=== PATIENT | male | born 1950 | race Caucasian/White ===

== ENCOUNTER 2017-05-05 05:53 | Inpatient (IN) | payer MEDICARE, OTHER ==
[2017-04-28 11:23] LABS: BASOPHILS 0.5 %; BASOPHILS ABSOLUTE 0.04 10/3/uL (0.0-0.16); EOSINOPHILS 4.9 %; HEMATOCRIT 45.8 % (40.0-51.0); HEMOGLOBIN 15.8 g/dL (13.6-17.8); IMMATURE GRANULOCYTES 0.4 %; IMMATURE GRANULOCYTES ABSOLUTE 0.03 10/3/uL (0.0-0.11); LYMPHOCYTES 29.6 %; LYMPHOCYTES ABSOLUTE 2.41 10/3/uL (0.67-4.30); MANUAL DIFF NO %; MEAN CORPUS HGB CONC 34.5 g/dL (32.0-36.0); MEAN CORPUSCULAR HEMOGLOB 30.7 pg (26.0-34.0); MEAN CORPUSCULAR VOLUME 89.1 fL (80-100); MEAN PLATELET VOLUME 8.8 fL (9.2-13.0); MONOCYTES 6.6 %; MONOCYTES ABSOLUTE 0.54 10/3/uL (0.21-1.20); NEUTROPHILS ABSOLUTE 4.72 10/3/uL (2.02-8.40); PLATELET COUNT 200 10/3/uL (150-400); RBC DISTRIBUTION WIDTH 13.3 % (12.0-16.0); RED CELL COUNT 5.14 10/6/uL (4.7-6.1); WHITE BLOOD CELLS 8.1 10/3/uL (4.5-10.5)
[2017-04-28 11:29] LABS: PARTIAL THROMBO TIME 32.6 SEC (22.5-37.2); PROTIME (NOT ORD) 13.2 SEC (12.0-14.5)
[2017-04-28 11:41] LABS: BUN (BLOOD UREA NITROGEN) 15 MG/DL (6-23); CALCIUM, SERUM 9.4 MG/DL (8.5-10.4); CHLORIDE, SERUM 104 MMOL/L (96-112); CO2 (CARBON DIOXIDE) 29 MMOL/L (24-34); CREATININE 1.17 MG/DL (0.70-1.30); GFR AFRICAN AMERICAN 74 ML/MIN (>=60); GFR NON AFRICAN AMERICAN 64 ML/MIN (>=60); GLUCOSE, SERUM 100 MG/DL (60-99); POTASSIUM, SERUM 4.4 MMOL/L (3.5-5.3); SODIUM, SERUM 138 MMOL/L (135-148)
[2017-04-28 14:13] LABS: ASCORBIC ACID (UR NOT ORDER) NEG (NEG); BILIRUBIN, URINE NEGATIVE (NEG); KETONE, URINE NEGATIVE (NEG); LEUKOCYTE ESTERASE(NOT OR NEG (NEG); WBC (NOT ORDERED) (RFLEX) < 1 (0-5)
--- NOTE | ~2017-05-05 | OP ---
Record Of Operation [facility] [address] [place]. [address] NAME: AYSHA PENA : 46 STATUS : ADM IN PAT#: [id number] AGE: 67 ADM/REG DATE : 05/05/17 MR#: [id number] REPORT SERV DATE: 05/05/17 DICTATED BY: OSMEL COLEMAN DATE: 05/05/17 REPORT STATUS : Draft TRANSCRIBED BY: MODL DATE: 05/05/17 DATE OF PROCEDURE: PREOPERATIVE DIAGNOSIS: Left renal mass. POSTOPERATIVE DIAGNOSIS: Left renal mass. PROCEDURE: Laparoscopic left nephrectomy. SURGEON: Osmel Coleman M.D. LABOR ECONOMIST: Tram Richards. ANESTHESIA: General and tap block. BLOOD LOSS: Estimated 200 mL. FLUID REPLACEMENT: 1.2 L crystalloid, 500 mL albumin. INDICATION: A 67-year-old white male with a centrally located 3-cm enhancing left renal mass, cystic in nature. TECHNIQUE: The patient identified, brought to the operating room, administered general anesthetic agent by the Anesthesia Service, and intubated. They had previously placed a tap block. He was positioned in left flank position with right flank down and left flank elevated. The entire left flank was shaved and the entire left flank and abdomen were prepped and draped in usual sterile fashion after placing a 16-Wolof Coleman catheter into the bladder. A 3-cm skin incision was made adjacent to the umbilicus at approximately the level of the rectus sheath. This was carried down through the subcutaneous tissue to expose the expose the external fascia. Holding sutures were placed in the external fascia and a transverse incision was made with an 11-blade scalpel. The underlying muscle fibers were along the direction of its fibers. The posterior sheath was incised sharply and the underlying peritoneum was identified and opened sharply. A balloon trocar was placed into the peritoneum and a pneumoperitoneum was created by insufflating carbon dioxide. A 100-mm laparoscope was placed through the balloon trocar. A 12-mm port was placed approximately 10 cm lateral to the initial port and then a 12-mm port was placed approximately 20 cm cephalad to the first one. Once the ports were in positions, I began. I opened the avascular line of Toldt sharply from the splenic flexure all the way down to the iliac vessels. I mobilized the colon medially and began to separate the upper pole of the kidney off the spleen by dividing the splenorenal ligaments. I then exposed the gonadal vessels on the left. Underneath the gonadal vessels, the left ureter was identified. Everything above the ureter was elevated and I exposed the left psoas muscle. I carried my dissection cephalad along the psoas muscle until I encountered the renal hilum. The left gonadal vein was clipped with a 10-mm clip doubly and then divided with the Harmonic scalpel. The left renal artery was identified. It was very large solitary artery. It was Record Of Operation [facility] [address] [facility] [place]. [address] NAME: AYSHA PENA : 46 STATUS : ADM IN PAT#: [id number] AGE: 67 ADM/REG DATE : 05/05/17 MR#: [id number] REPORT SERV DATE: 05/05/17 DICTATED BY: OSMEL COLEMAN DATE: 05/05/17 REPORT STATUS : Draft TRANSCRIBED BY: MODL DATE: 05/05/17 skeletonized and then I placed a locking clip on approximately a 10-mm metallic clip on it distal to that and then another locking clip on distal to that. I then divided the distal portion of the Harmonic scalpel. I continued dissection of the hilum. The left renal vein was identified. A laparoscopic KENIA stapling device was placed around it and it was fired thus dividing and securing the vein. I then just took down further attachments between the adrenal gland and its blood supply. I mobilized the kidney laterally and inferiorly. At this point, I removed the inferolateral port and extended the skin incision medially over toward the balloon port. I removed the balloon port and placed a hand GelPort in it. I then placed my hand through this keeping the pneumoperitoneum. I bluntly dissected the remainder of the upper pole off the adrenal gland. I then had the specimen freed. The gonadal vessels and the ureter were clipped distally and then transected proximally. The specimen was placed into a specimen retrieval bag and then retrieved out through the GelPort. I then placed a lap sponge and inspected the renal hilum. The pressure was lowered down to 7 mmHg. The renal hilum was dry. I irrigated the renal fossa copiously. I removed the lap sponge. A 15-mm Navjot drain was placed through a separate stab incision and left in the renal fossa. The drain was sutured to skin with 2-0 Prolene. I then removed all other ports under low pressure. I removed the GelPort. I then closed the transversus abdominis muscle with running 0 PDS. I closed the internal oblique with [id number] 0 Vicryl sutures and then closed external oblique with running 0 PDS. The subcutaneous tissue was irrigated copiously. This was closed with 3-0 Vicryl. The skin of all ports and the wound was closed with 4-0 Monocryl. Dressings were applied. The patient was awakened and taken to recovery unit in stable and satisfactory condition. PF/MODL Osmel Coleman M.D. / [id number] CC: Jose Vargas M.D.
--- NOTE | ~2017-05-05 | HP ---
History And Physical [address] [address] NAME: AYSHA PENA : 46 STATUS : ADM IN PAT#: [id number] AGE: 67 ADM/REG DATE : 05/05/17 MR#: [id number] REPORT SERV DATE: 05/05/17 DICTATED BY: OSMEL COLEMAN DATE: 05/05/17 REPORT STATUS : Draft TRANSCRIBED BY: MODL DATE: 05/05/17 DATE OF ADMISSION: 05/05/2017 CHIEF COMPLAINT: Left renal mass. HISTORY OF PRESENT ILLNESS: 67-year-old white male, whose workup for cholestasis in October include a CT scan of the abdomen and pelvis. Revealed a complex cyst in the left kidney. It is a Bosniak type III 3 cm cyst that enhances. It is in the very central portion of the kidney and has irregular borders. Different management options regarding the cyst were proposed and then recommended that he have a laparoscopic left nephrectomy. The patient consents for that procedure and will be admitted after today. The patient has a history of a transient ischemic attack several months ago. He had Neurology evaluation at [facility]. He was managed medically with aspirin and Plavix. The risk of perioperative stroke has been related to the patient. He agrees to assume the risk and has been off his Plavix and aspirin for seven days. PAST MEDICAL HISTORY: Significant for hypertension, TIA, and GERD. PAST SURGICAL HISTORY: Includes appendectomy, back surgery, cholecystectomy, and knee surgery. MEDICATIONS: Lisinopril, hydrochlorothiazide, pantoprazole, atorvastatin, vitamin B12, aspirin, Plavix on hold. ALLERGIES: NO KNOWN DRUG ALLERGIES. SOCIAL HISTORY: Rare alcohol use. He is a smoker and has a 50 pack year history. Denies illicit drug use. FAMILY HISTORY: Negative for any renal masses or diseases. REVIEW OF SYSTEMS: GERD, arthritis, and obesity. PHYSICAL EXAMINATION: GENERAL: Well-developed, well-nourished, obese, white male, in no acute distress. He is awake, alert, oriented x3. HEENT: Sclerae anicteric. NECK: Supple. LUNGS: Clear. HEART: Regular rate and rhythm. ABDOMEN: Soft, nontender. No palpable abdominal masses. Flank is nontender. : Kidneys are not palpable. EXTREMITIES: Lower extremities, no deformities. History And Physical [address] [place]. 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 PLAN: Laparoscopic left nephrectomy. Potential complications of bleeding, infection, kidney failure and injury to adjacent structures such as spleen, lung, diaphragm, pleura, liver, intestines, colon, blood vessels, nerves, as well as perioperative stroke and TIA have all been explained to the patient. He consents to proceed. PF/RADHA Osmel Coleman M.D. / [id number] CC: Osmel Coleman M.D.
--- NOTE | ~2017-05-05 | CN ---
Consultation Report [facility] [address] [facility] [place]. [address] NAME: AYSHA PENA : 46 STATUS : ADM IN PAT#: [id number] AGE: 67 ADM/REG DATE : 05/05/17 MR#: [id number] REPORT SERV DATE: 05/06/17 DICTATED BY: DATE: REPORT STATUS : Draft TRANSCRIBED BY: MODL DATE: 05/06/17 CONSULTATION DATE OF CONSULTATION: REASON FOR CONSULTATION: Acute kidney injury. HISTORY OF PRESENT ILLNESS: Mr. Pena is a 67-year-old white male. He has a history of some mild CKD on review of records creatinine was 1.1, preoperatively his creatinine was 1.1, today it is 1.6. He is in the hospital at this time after undergoing a left nephrectomy yesterday for a left renal mass that was discovered during the time of acute cholecystitis late last year when he underwent cholecystectomy. He does give a history of hypertension and been treated for several years, not difficult to control. He also had a TIA in December of 2016, and we were asked to see him because of this elevation in creatinine. He is unaware of any kidney disease in the past, in fact until the last year states he had been relatively healthy. No shortness of breath. No dysuria or hematuria. His UA prior to surgery was without any protein or blood. His CT showed the right kidney to be normal in size and structure. I did not see any perioperative hypotension noted. There was no nonsteroidals noted. He is tolerating p.o. without nausea or vomiting. PAST MEDICAL HISTORY: TIA, hypertension, reflux, appendectomy, back surgery, cholecystectomy, and knee surgery. 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 He is . He smoked up until December 2016. No alcohol or illicit drug use. ALLERGIES: NONE. FAMILY MEDICAL HISTORY: Negative for any end-stage renal disease. MEDICATIONS: At home, aspirin, atorvastatin, Plavix, B12, hydrochlorothiazide, lisinopril, Protonix. REVIEW OF SYSTEMS: 12-point review of systems obtained and negative with the exception of that in HPI. PHYSICAL EXAMINATION: VITAL SIGNS: Temp 98.1, blood pressure 160/75, pulse 90, respiratory rate 16, O2 saturation is 96% on 2 L. GENERAL: This is a pleasant, cooperative white male. He is awake, alert, and oriented x3, in no acute distress. Answers questions appropriately. HEENT: Normocephalic and atraumatic. Conjunctivae clear. Sclerae anicteric. Pupils are equal and round. Oral mucosa is moist. NECK: Supple. Carotids are brisk. Neck veins flat. No lymphadenopathy. Consultation Report [address] [place] [facility] [address] NAME: AYSHA PENA : 46 STATUS : ADM IN PAT#: [id number] AGE: 67 ADM/REG DATE : 05/05/17 MR#: [id number] REPORT SERV DATE: 05/06/17 DICTATED BY: DATE: REPORT STATUS : Draft TRANSCRIBED BY: MODJaimee DATE: 05/06/17 RESPIRATIONS: Even and unlabored. Breath sounds clear to auscultation. HEART: Rate is regular. No murmur, rub, or gallop. ABDOMEN: Soft and nontender. Bowel sounds are active. No masses or hepatosplenomegaly. Appropriate postoperative tenderness to the abdomen. EXTREMITIES: No edema, cyanosis, clubbing. SKIN: Warm, dry, and intact. No unusual rash or skin lesions. NEURO: No focal deficits. Mood and affect, pleasant appropriate. PERTINENT LABS AND X-RAYS: Sodium 136, potassium 3.9, chloride 104, CO2 of 25, BUN of 19, creatinine of 1.6, calcium 8.3, magnesium of 2.1. WBCs 11, H and H 13 and 40, platelets 141,000. IMPRESSION: 1. Acute kidney injury. 2. Chronic kidney disease, stage I. 3. Left renal mass, status post nephrectomy postop day 1. 4. Hypertension. PLAN/RECOMMENDATION: He has mild acute kidney injury on CKD. Suspect this may be just from some hydration issues. He has good urine output. It could be also post nephrectomy change. We will follow. Discussed with patient outpatient avoidance of nephrotoxins including NSAIDs. He is tolerating p.o. well. We will go ahead and hold BRIONNA inhibitor and HCTZ in a.m. He has already had a dose today, but expect creatinine to be better. We will follow urine output, he just had a Gregg removed. If his creatinine is the same or better, okay for discharge and we will be glad to follow him up in CKD Clinic. Further orders and recommendations pending clinical course. LEYLA/MODL DK Clancy / [id number] CC: Jose Vargas M.D.
[~2017-05-05 05:53] MED LIST: ASAB PO; HYDROCHLOROT12.5 MG PO; LIPITOR20 PO; LISINOPRIL40 MG PO; PLAVIX PO; PROTONIX PO; VITAMIN B-121000 MC1 SL
[2017-05-06 06:50] LABS: BASOPHILS 0.2 %; BASOPHILS ABSOLUTE 0.02 10/3/uL (0.0-0.16); EOSINOPHILS 0.3 %; EOSINOPHILS ABSOLUTE 0.04 10/3/uL (0.0-0.53); HEMOGLOBIN 13.8 g/dL (13.6-17.8); IMMATURE GRANULOCYTES 0.2 %; IMMATURE GRANULOCYTES ABSOLUTE 0.02 10/3/uL (0.0-0.11); LYMPHOCYTES 15.5 %; LYMPHOCYTES ABSOLUTE 1.82 10/3/uL (0.67-4.30); MEAN CORPUSCULAR HEMOGLOB 30.5 pg (26.0-34.0); MEAN CORPUSCULAR VOLUME 89.8 fL (80-100); MEAN PLATELET VOLUME 8.9 fL (9.2-13.0); MONOCYTES 6.9 %; MONOCYTES ABSOLUTE 0.81 10/3/uL (0.21-1.20); NEUTROPHILS 76.9 %; NEUTROPHILS ABSOLUTE 9.05 10/3/uL (2.02-8.40); PLATELET COUNT 141 10/3/uL (150-400); RBC DISTRIBUTION WIDTH 13.6 % (12.0-16.0); RED CELL COUNT 4.52 10/6/uL (4.7-6.1)
[2017-05-06 06:51] LABS: HEMATOCRIT 40.6 % (40.0-51.0); MANUAL DIFF NO %; WHITE BLOOD CELLS 11.8 10/3/uL (4.5-10.5)
[2017-05-06 06:56] LABS: CHLORIDE, SERUM 104 MMOL/L (96-112); CO2 (CARBON DIOXIDE) 25 MMOL/L (24-34); CREATININE 1.66 MG/DL (0.70-1.30); GFR AFRICAN AMERICAN 48 ML/MIN (>=60); GFR NON AFRICAN AMERICAN 41 ML/MIN (>=60); POTASSIUM, SERUM 3.9 MMOL/L (3.5-5.3); SODIUM, SERUM 136 MMOL/L (135-148)
[2017-05-06 07:02] LABS: BUN (BLOOD UREA NITROGEN) 19 MG/DL (6-23); CALCIUM, SERUM 8.3 MG/DL (8.5-10.4); GLUCOSE, SERUM 129 MG/DL (60-99)
[2017-05-07 05:05] LABS: BASOPHILS 0.2 %; BASOPHILS ABSOLUTE 0.02 10/3/uL (0.0-0.16); EOSINOPHILS 1.6 %; HEMATOCRIT 41.6 % (40.0-51.0); HEMOGLOBIN 14.4 g/dL (13.6-17.8); IMMATURE GRANULOCYTES 0.4 %; IMMATURE GRANULOCYTES ABSOLUTE 0.05 10/3/uL (0.0-0.11); LYMPHOCYTES 13.3 %; MEAN CORPUS HGB CONC 34.6 g/dL (32.0-36.0); MEAN CORPUSCULAR HEMOGLOB 31.1 pg (26.0-34.0); MEAN CORPUSCULAR VOLUME 89.8 fL (80-100); MEAN PLATELET VOLUME 8.9 fL (9.2-13.0); MONOCYTES 8.7 %; MONOCYTES ABSOLUTE 1.11 10/3/uL (0.21-1.20); NEUTROPHILS 75.8 %; NEUTROPHILS ABSOLUTE 9.75 10/3/uL (2.02-8.40); PLATELET COUNT 163 10/3/uL (150-400); RBC DISTRIBUTION WIDTH 13.4 % (12.0-16.0); RED CELL COUNT 4.63 10/6/uL (4.7-6.1); WHITE BLOOD CELLS 12.8 10/3/uL (4.5-10.5)
[2017-05-07 05:07] LABS: MANUAL DIFF NO %
[2017-05-07 05:11] LABS: BUN (BLOOD UREA NITROGEN) 19 MG/DL (6-23); CALCIUM, SERUM 8.9 MG/DL (8.5-10.4); CHLORIDE, SERUM 102 MMOL/L (96-112); CO2 (CARBON DIOXIDE) 27 MMOL/L (24-34); CREATININE 1.65 MG/DL (0.70-1.30); GFR AFRICAN AMERICAN 48 ML/MIN (>=60); GFR NON AFRICAN AMERICAN 42 ML/MIN (>=60); GLUCOSE, SERUM 110 MG/DL (60-99); SODIUM, SERUM 135 MMOL/L (135-148)
[2017-05-07 05:13] LABS: POTASSIUM, SERUM 4.1 MMOL/L (3.5-5.3)
[2017-05-07] MEDS ORDERED: NORV5 PO (08:05)
[2017-05-07] MEDS ORDERED: NORCO1 TA1 PO (08:05)
== END 2017-05-07 11:31 | disposition home or self-care (01) | DRG 657 ==
LOC: SDC/OF 05:53 → PACU 12:44 → 4SO 15:22
PROVIDERS: Urology
PROC: 0TT14ZZ Resection of Left Kidney, Percutaneous Endoscopic Approach (ICD-10-PCS; principal; 2017-05-05 07:45)
DX: D49.512 Neoplasm of unspecified behavior of left kidney (principal); N17.9 Acute kidney failure, unspecified; I12.9 Hypertensive chronic kidney disease with stage 1 through stage 4 chronic kidney disease, or unspecified chronic kidney disease; N18.1 Chronic kidney disease, stage 1
CPT/HCPCS: 80048; 81001; 83735; 85025; 85610; 85730; 88305; 88307; 93005; 94640; A9270-GY; J0360; J0690; J2250; J2270; J2370; J2405; J2710; J2795; J3010; P9045